=== PATIENT | female | born 1940 | race Caucasian/White ===

== ENCOUNTER 2017-04-12 05:08 | Emergency (ER) | payer OTHER ==
[~2017-04-12] VITALS: Ht 152.4 cm; Wt 68.0 kg
[~2017-04-12 05:08] MED LIST: ALBU90OI INH; ALPR.25 PO; ASPI81CH PO; ATOR10; Accupril20 MG PO; BISO5 PO; CIPR500 PO; Digestive Enzy1 EACH; HYDCHL12.5 PO; KRILL OIL 3001 EACH PO; METO50ER; Minocycline HC100 MG PO; NEBI5 PO; OXYACE5T PO; Oxycodone-Apap1 EAC3 PO; PHENA200 PO; QUIN10 PO; QUIN5 PO; SOOTHE LUBRICA1 EACH OP; SULTRIDS PO; TRIHYD253A PO; VIACTIV SOFT C1 EAC1 PO; Zofran Odt4 MG SL
[2017-04-12 05:43] LABS: BASOPHILS ABSOLUTE AUTO 0.02 K/mm3 (0.00-0.23); BASOPHILS PERCENT AUTO 0 % (0-2); EOSINOPHILS ABSOLUTE AUTO 0.25 K/mm3 (0.00-0.68); EOSINOPHILS PERCENT AUTO 3 % (0-6); Hematocrit 47.9 % (33.0-51.0); Hemoglobin 16.2 g/dL (11.5-16.0); IMMATURE GRAN ABSOLUTE AUTO 0.06 K/mm3 (0.00-0.10); IMMATURE GRAN PERCENT AUTO 1 % (0-1); LYMPHOCYTES ABSOLUTE AUTO 2.68 K/mm3 (0.84-5.20); LYMPHOCYTES PERCENT AUTO 27 % (21-46); MONOCYTES ABSOLUTE AUTO 0.71 K/mm3 (0.16-1.47); MONOCYTES PERCENT AUTO 7 % (4-13); Mean Corpuscular HGB 33.1 pg (26.0-34.0); Mean Corpuscular HGB Conc 33.8 g/dL (31.5-36.5); Mean Corpuscular Volume 98 fL (80-100); Mean Platelet Volume 11.2 fL (9.1-12.4); NEUTROPHILS PERCENT AUTO 63 % (41-73); Platelet Count 227 K/mm3 (150-400); RDW Coefficient Variation 12.7 % (11.7-14.2); RDW Standard Deviation 45.4 fL (35.1-46.3); White Blood Cell Count 10.02 K/mm3 (4.00-11.30)
[2017-04-12 05:55] LABS: Source, Urine Clean Catch
[2017-04-12 05:59] LABS: Bilirubin, Urine Neg (Neg); Blood, Urine 1+ (Neg); Glucose Qualitative, Urine Neg (Neg); Ketones, Urine Neg (Neg); Leukocyte Esterase, Urine 3+ (Neg); Nitrite, Urine Neg (Neg); Protein, Urine Neg (Neg); Specific Gravity, Urine 1.025 (1.003-1.022); Urobilinogen, Urine NORM (Normal)
[2017-04-12 06:01] LABS: Albumin/Globulin Ratio 1.3 (0.8-1.8); Bilirubin, Total 0.4 mg/dL (0.1-1.0); Calcium, Blood 9.1 mg/dL (8.5-10.1); Creatinine, Blood 1.2 mg/dL (0.40-1.00); Globulin, Blood 3.1 g/dL (2.2-4.0); Potassium, Blood 4.3 mmol/L (3.5-5.5); Total Protein, Blood 7.1 g/dL (6.4-8.2)
[2017-04-12 06:11] LABS: Appearance, Urine Hazy (Clear); Color, Urine Yellow (P-Yellow)
[2017-04-12 06:14] LABS: Bacteria Few /hpf; Squamous Epithelial Cells Few /hpf (Few)
[2017-04-12] MEDS ORDERED: Cefdinir300 MG PO ×2 (06:51→06:53)
[2017-04-12] MEDS ORDERED: Zofran Odt4 MG SL ×2 (06:51→06:53)
== END 2017-04-12 06:58 | disposition home or self-care (01) ==
LOC: ER 05:08
PROVIDERS: Physician Assistant
DX: N12 Tubulo-interstitial nephritis, not specified as acute or chronic (principal); Z88.8 Allergy status to other drugs, medicaments and biological substances; Z88.1 Allergy status to other antibiotic agents; Z88.2 Allergy status to sulfonamides; Z79.82 Long term (current) use of aspirin; Z79.899 Other long term (current) drug therapy; Z98.51 Tubal ligation status; Z87.891 Personal history of nicotine dependence; Z90.5 Acquired absence of kidney
CPT/HCPCS: 36415; 74176; 80053; 81001; 85025; 87086; 96361; 96374; 96375; 99284; J0696; J1170; J2405; J7030

== ENCOUNTER → 2020-10-30 | Outpatient (CLI) | payer OTHER ==
[~2020-10-30] MED LIST changes: +ALBU8HFA2 INH; +Cefdinir300 MG PO; +Nitroglycerin1 EAC3 TOP
== END | disposition home or self-care (01) ==
LOC: LAB SHORT 11:07
DX: D48.5 Neoplasm of uncertain behavior of skin (principal)
CPT/HCPCS: 88305

== ENCOUNTER → 2023-09-20 | Outpatient (CLI) | payer OTHER ==
[~2023-09-20] MED LIST changes: +Prinivil10 MG PO
== END ==
LOC: LAB SHORT 12:07 → LAB 12:07
DX: J06.9 Acute upper respiratory infection, unspecified (principal); N39.0 Urinary tract infection, site not specified
CPT/HCPCS: 87086

== ENCOUNTER → 2023-09-22 | Outpatient (CLI) | payer OTHER | LOC: LAB SHORT 10:26 → LAB 10:26 | DX: R35.0 Frequency of micturition (principal) | CPT/HCPCS: 87086 ==